=== PATIENT | female | born 1990 | race Caucasian/White ===

== ENCOUNTER → 2020-03-02 09:03 | Outpatient (BNVA) | payer BC, SELFPAY | PROVIDERS: Visit Provider Psychiatry & Neurology Psychiatry | DX: F41.1 Generalized anxiety disorder (principal); F40.10 Social phobia, unspecified; F42.9 Obsessive-compulsive disorder, unspecified; F63.3 Trichotillomania | CPT/HCPCS: 99204 ==

== ENCOUNTER → 2020-05-25 09:06 | Outpatient (BNVA) | payer BC, SELFPAY | PROVIDERS: Visit Provider Psychiatry & Neurology Psychiatry | DX: F63.3 Trichotillomania (principal); F42.9 Obsessive-compulsive disorder, unspecified; F40.10 Social phobia, unspecified; F41.1 Generalized anxiety disorder | CPT/HCPCS: 99213 ==

== ENCOUNTER → 2020-07-27 08:13 | Outpatient (BNVA) | payer BC, SELFPAY | PROVIDERS: Visit Provider Psychiatry & Neurology Psychiatry | DX: F41.1 Generalized anxiety disorder (principal); F63.3 Trichotillomania; F42.9 Obsessive-compulsive disorder, unspecified; F40.10 Social phobia, unspecified | CPT/HCPCS: 99213 ==

== ENCOUNTER → 2020-10-19 09:09 | Outpatient (BNVA) | payer OTHER, SELFPAY | PROVIDERS: Visit Provider Psychiatry & Neurology Psychiatry | DX: F41.1 Generalized anxiety disorder (principal); F63.3 Trichotillomania; F42.9 Obsessive-compulsive disorder, unspecified; F40.10 Social phobia, unspecified | CPT/HCPCS: 99214 ==

== ENCOUNTER → 2020-12-02 07:37 | Outpatient (BNVA) | payer OTHER, SELFPAY | PROVIDERS: Visit Provider Psychiatry & Neurology Psychiatry | DX: F41.1 Generalized anxiety disorder (principal); F63.3 Trichotillomania; F42.9 Obsessive-compulsive disorder, unspecified; F40.10 Social phobia, unspecified | CPT/HCPCS: 99214 ==

== ENCOUNTER → 2021-01-26 13:27 | Outpatient (BNVA) | payer OTHER, SELFPAY | PROVIDERS: Visit Provider Psychiatry & Neurology Psychiatry | DX: F40.10 Social phobia, unspecified (principal); F41.1 Generalized anxiety disorder; F42.9 Obsessive-compulsive disorder, unspecified; F63.3 Trichotillomania | CPT/HCPCS: 99214 ==

== ENCOUNTER 2021-03-01 12:33 | Outpatient (RCR) | payer OTHER, SELFPAY | END 2021-03-24 23:59 | disposition home or self-care (01) | LOC: SPT 12:33 | PROVIDERS: PCP Nurse Practitioner Family; Referring Provider Nurse Practitioner Family; Visit Provider Nurse Practitioner Family | DX: S13.4XXD Sprain of ligaments of cervical spine, subsequent encounter (principal); V89.2XXD Person injured in unspecified motor-vehicle accident, traffic, subsequent encounter; M94.0 Chondrocostal junction syndrome [Tietze]; M53.3 Sacrococcygeal disorders, not elsewhere classified | CPT/HCPCS: 97110; 97162 ==

== ENCOUNTER 2021-03-02 09:59 | Outpatient (CLI) | payer OTHER, SELFPAY ==
--- NOTE | 2021-03-02 10:07 | MM_ITS ---
WS: [id number] BILATERAL DIGITAL DIAGNOSTIC MAMMOGRAM MAMMOGRAPHY WITH CAD CLINICAL INFORMATION: breast lump right side 2 o'clock COMPARISON: None. TECHNIQUE: Bilateral CC, MLO, and ML views. FINDINGS: The breasts are composed of heterogeneous fibroglandular density, which can limit the detection of sm all underlying mass lesions. 8 mm ovoid asymmetry deep to the palpable marker right breast. A few pun ctate calcifications. Left breast is unremarkable. Ultrasound right breast is pending. ULTRASOUND BREAST RIGHT TECHNIQUE: Ultrasound right breast focused area of concern. CLINICAL INFORMATION: breast lump right side 2 o'clock FINDINGS: Ultrasound right breast 3:00 position 1 cm from the nipple. 6.8 x 4.6 x 10 mm cystic lesion with a sm all amount of internal debris. This has a benign appearance. No other suspicious findings. No lesions to target for biopsy. MM/[place] [id number] IMPRESSION: BI-RADS: 2-Benign FOLLOW UP: Age 40 RECOMMEND ANNUAL SCREENING MAMMOGRAPHY AGE 40.
== END 2021-03-02 10:00 | disposition home or self-care (01) ==
PROVIDERS: PCP Nurse Practitioner Family; Visit Provider Nurse Practitioner Family
DX: N63.12 Unspecified lump in the right breast, upper inner quadrant (principal)
CPT/HCPCS: 76642; 77066

== ENCOUNTER 2021-03-25 06:00 | Outpatient (RCR) | payer OTHER, SELFPAY | END 2021-04-24 23:59 | disposition home or self-care (01) | LOC: SPT 06:00 | PROVIDERS: PCP Nurse Practitioner Family; Referring Provider Nurse Practitioner Family; Visit Provider Nurse Practitioner Family | DX: S13.4XXD Sprain of ligaments of cervical spine, subsequent encounter (principal); V89.2XXD Person injured in unspecified motor-vehicle accident, traffic, subsequent encounter; M94.0 Chondrocostal junction syndrome [Tietze]; M53.3 Sacrococcygeal disorders, not elsewhere classified | CPT/HCPCS: 97110 ==

== ENCOUNTER → 2023-05-23 10:15 | Outpatient (BNVA) | payer MEDICAID, SELFPAY | PROVIDERS: PCP Nurse Practitioner Family; Referring Provider Nurse Practitioner Family; Visit Provider Nurse Practitioner Women's Health | DX: Z12.4 Encounter for screening for malignant neoplasm of cervix (principal) | CPT/HCPCS: 87624 ==

== ENCOUNTER → 2023-06-07 10:16 | Outpatient (BNVA) | payer MEDICAID, SELFPAY | PROVIDERS: PCP Nurse Practitioner Family; Visit Provider Nurse Practitioner Women's Health | DX: N92.6 Irregular menstruation, unspecified (principal) | CPT/HCPCS: 76830 ==

== ENCOUNTER → 2023-06-08 09:55 | Outpatient (BNVA) | payer MEDICAID, SELFPAY | PROVIDERS: PCP Nurse Practitioner Family; Visit Provider Student in an Organized Health Care Education/Training Program | DX: M65.351 Trigger finger, right little finger (principal) | CPT/HCPCS: 73130 ==

== ENCOUNTER 2023-06-19 07:19 | Day surgery (SDC) | payer MEDICAID, SELFPAY ==
[2023-06-19] VITALS (7 sets, daily range): BP systolic 92–120; BP diastolic 63–88; PULSE 69–97; RESP 12–18; TEMP 36.1–36.5; O2SAT 97–99; BMI 27.3
[2023-06-19] MEDS: vancomycin 1,000 MG in sodium chloride 0.9% 250 ML 250 MG IV (07:51)
[2023-06-19] MEDS: ketorolac 30 mg/mL INJ IVP (07:52)
[2023-06-19] MEDS: acetaminophen 1,000 MG/100 ML PIGGYBACK 400 MG IV (07:52)
[2023-06-19] MEDS: sodium chloride 0.9% 1,000 ML 30 ML IV (07:52)
--- NOTE | 2023-06-19 07:55 | PC.NURSE ---
Patient refused HCG r/t tubal. Dr Seymour notified.
--- NOTE | 2023-06-19 09:03 | P.ANESASSM_ITS ---
Pre-Anesthetic Assessment Height/Weight: Height 1.55 m Weight 65.771 kg Temp Pulse Resp BP Pulse Ox O2 Del Method 97.3 F L 97 16 120/88 98 Room Air 06/19/23 07:37 06/19/23 07:37 06/19/23 07:37 06/19/23 07:37 06/19/23 07:37 06/19/23 07:37 Preop Diagnosis: Right small finger trigger Operation Date: 06/19/23 09:00 Proposed Procedures p RIGHT SMALL FINGER TRIGGER FINGER RELEASE 52531,M65.351(Right) - Patel Fentress, Familial anesthetic complications: none Was Beta Edmar taken within 24 hours: N/A Was Clonidine taken within 24 hours: N/A Last intake: Intake Last Liquid Date 06/18/23 Last Liquid Time 23:00 Last Solid Date 06/18/23 Last Solid Time 20:00 Social No alcohol and No tobacco Exam alert, oriented x 3, clear to auscultation bilaterally and regular rate & rhythm Airway Submandibular: within normal limits Cervical ROM: within normal limits Mallampati: Class II Dentition: full GI UC Neuropsych Anxiety and Depression Anesthetic Plan ASA status: 2 Anesthesia: MAC Medications/Allergies Home Medications Medication Instructions Recorded Confirmed Last Taken Type adalimumab 40 mg/0.8 mL See Rx Instructions SUBCUT .COMPLEX 02/06/20 06/16/23 06/09/23 History subcutaneous syringe kit (Humira) azathioprine 50 mg tablet 50 mg PO DAILY 02/06/20 06/19/23 06/18/23 History spironolactone 100 mg tablet 100 mg PO DAILY 02/06/20 06/19/23 06/18/23 History bupropion HCl 300 mg 24 hr tablet, 300 mg PO QAM #30 tabs 05/10/23 06/19/23 06/18/23 Rx extended release (Wellbutrin XL) escitalopram oxalate 10 mg tablet 10 mg PO DAILY #30 tabs 05/10/23 06/19/23 06/17/23 Rx (Lexapro) gabapentin 400 mg capsule 400 mg PO QID #120 caps 05/10/23 06/19/23 06/18/23 Rx sertraline 100 mg tablet (Zoloft) 100 mg PO DAILY #30 tabs 05/10/23 06/19/23 06/18/23 Rx ondansetron 4 mg disintegrating 4 mg PO Q8H PRN nausea and 06/19/23 Unknown Rx tablet vomiting 3 days #9 tabs tramadol 50 mg tablet 50 mg PO Q6H PRN pain #20 tabs 06/19/23 Unknown Rx Allergies Allergy/AdvReac Type Severity Reaction Status Date / Time Pertussis Vaccines Allergy Severe Throat Verified 06/08/23 10:06 closing up & trouble breathing oxycodone AdvReac Severe Constant N Verified 06/08/23 10:06 & V cephalexin [From Keflex] AdvReac Intermediate Hives Verified 06/08/23 10:06 ciprofloxacin [From Cipro] AdvReac Intermediate Hives Verified 06/08/23 10:06 haloperidol [From Haldol] AdvReac Intermediate TD Verified 06/08/23 10:06 Penicillins AdvReac Intermediate Hives Verified 06/08/23 10:06 Sulfa (Sulfonamide AdvReac Intermediate Hives Verified 06/08/23 10:06 Antibiotics) Current Medications Generic Name Dose Route Start Last Admin Trade Name Freq PRN Reason Stop Dose Admin Sodium Chloride 1,000 mls @ 30 mls/hr 06/19/23 07:30 06/19/23 07:52 Sodium Chloride 0.9% IV 06/20/23 07:29 30 mls/hr .Q24H SHA Administration PFSH Anesthesia Medical History Psychiatric care Family History Mother Hyperlipidemia Denies family history of Colon cancer Ovarian cancer Diabetes Heart disease Breast cancer Hypertension Uterine cancer Thyroid condition Stroke Social History Smoking and tobacco status: never smoked Second hand smoke exposure: Yes Smoking risk assessment/counseling performed?: No Alcohol intake: former Desire information about alcohol rehabilitation?: No Counseling given: No Substance/Drug Use: never Desire information about substance/drug rehabilitation?: No Counseling given: No Current gender identity: Female Data Anesthesia Cardiac Studies: No Data to Display
--- NOTE | 2023-06-19 09:59 | W.PM.OPSUD ---
Surgery/Procedure H&P Update DATE OF PROCEDURE: June 19, 2023 DATE H&P PERFORMED: 06/08/23 H&P UPDATE INFORMATION: I have reviewed H&P completed within last 30 days, I have examined patient prior to procedure and No changes to prior documentation PREOP DIAGNOSIS: Right small finger trigger PRIMARY INDICATION FOR PROCEDURE: Right small finger trigger, failure conservative treatment PLANNED PROCEDURE: Operation Date: 06/19/23 09:00 Proposed Procedures p RIGHT SMALL FINGER TRIGGER FINGER RELEASE [id number],M65.351(Right) - Patel Treviño DO
[2023-06-19] MEDS: ROPivacaine 0.5% SDV 30 mL 25 MG INJECTION (10:38)
[2023-06-19] MEDS: BUPivacaine 0.5% INJ 10 mL INJECTION (10:38)
--- NOTE | 2023-06-19 11:05 | P.BOP_ITS ---
Date of Procedure: 06/19/2023 Surgeon: Patel Treviño DO [employer] Officer(s): Austin Treviño PA-C Procedure(s) performed: Right small finger trigger release Findings of the procedure(s): Right small finger trigger, procedure went as planned Estimated blood loss: 1 cc Specimen(s) removed: None Post-operative diagnosis: Right small finger trigger
--- NOTE | 2023-06-19 11:06 | P.OP_ITS ---
Operative Report Date of procedure: June 19, 2023 Pre-op diagnosis: Right small finger trigger Post-op diagnosis: Same Surgeon: Patel Treviño DO Transportation Driver: Austin Treviño PA-C: PA was necessary for assistance in this case for right skin retraction as well as protection of neurovascular structures during A1 meseret release as well as to assist in wound closure. Procedure: Post-op diagnosis: Same Procedure done: Right small finger?trigger?release Surgeon: Patel Treviño DO Estimated blood loss: 1cc Tourniquet time 7mins Complications: None Condition: stable Disposition: same day Brief History: Patient's been seen and worked up in the outpatient setting and findings consistent with preoperative diagnosis of right small finger?trigger.? Patient has failed conservative treatment.? Continues to have mechanical locking and catching.? Significant pain as well.? We talked about treatment options nonoperative versus operative intervention.? ?Patient understands the risk benefits complication alternatives of surgical nonsurgical treatment options.? Understanding risks with surgery patient elects proceed with surgical intervention of right small finger trigger release.? Consent obtained in the office.? Here today to proceed with surgical intervention.? All questions answered. Procedure: Patient was seen and evaluated in the preoperative holding area.? Consent was reviewed and signed with patient.? Seen evaluated by Anesthesia Department.? On ce cleared for surgery was brought back to the operative suite.? Placed in supine position on the OR table all bony prominences well-padded patient properly secured to the bed.? Patient's right arm was then placed to the armboard.? A nonsterile tourniquet applied to the right upper arm.? Patient's right upper extremity was then prepped and draped in standard orthopedic fashion.? Final timeout performed.? Patient received appropriate preoperative antibiotics. Esmarch tourniquet was used exsanguinate the right upper extremity tourniquet insufflated to 250 mmHg. Under sterile aseptic technique local digital block was performed to the right small finger.? Once appropriately anesthetized a standard transverse incision was made centering over the A1 meseret following patient's flexor crease of the small finger.? Sharp scalpel incision was made only through skin and then switched to Littler dissection scissors and spread longitudinally directly over the flexor tendon sheath.? I then mobilized both radially and ulnarly and Kasdan retractors were used and placed by my assignment desk assistant to protect neurovascular bundle.? Next I visualized the A1 meseret and this was incised with a scalpel.? I then switched to dissection scissors and released the A1 meseret both proximally as well as distally to its entirety.? Significant tendon sheath fluid was noted consistent with inflammation.? Mild fraying of the flexor tendons noted but no tear.? At this point I utilized a rag nail and pulled the tendons FDS and FDP out of the incision and no?triggering was noted.? I then had anesthesia wake up the patient and patient was able to actively flex and extend with no?triggering.? This point thorough irrigation was performed.? Tourniquet deflated hemostasis satisfactory with bipolar.? I then subsequently closed the incision with interrupted nylon suture.? Xeroform 4 x 4's, Kerlix and an Carroll wrap was applied for a bulky soft dressing.? Patient was then subsequently awakened from anesthesia and taken to PACU in stable condition tolerated procedure without issues. Disposition: Patient taken back in stable condition recovering well.? Patient will receive appropriate discharge instruction as well as pain medication postoperatively.? Patient to follow-up orthopedic office in 2 weeks for repeat evaluation and incision check.? Patient understands that any questions or concerns and contact the office.? All questions answered
--- NOTE | 2023-06-19 11:13 | PM.PACU ---
PACU note Narrative: Patient is a 33-year-old female who just underwent a right fifth digit trigger finger release. Patient transferred to PACU in stable condition. Pain is well controlled. Dressing on hand is dry and in place. Patient's fingers are warm and well-perfused. Patient can wiggle fingers. normal cap refill under 2 seconds. Patient has normal elbow range of motion. Unable to assess sensation due to residual localized anesthetic. Exam: awake Disposition: discharged
--- NOTE | 2023-06-19 15:12 | ANE.PACU2 ---
Inpatient post-anesthesia follow up: Airway intact: Yes Vital signs: Temperature 97.0 F Pulse Rate 69 Respiratory Rate 16 Blood Pressure 114/69 Pulse Oximetry 99 Oxygen Delivery Me thod Room Air Oxygen Flow Rate Fraction of Inspir ed Oxygen Hydration adequate: Yes Nausea and vomiting: No Pain level: 2 Mental status: Baseline
== END 2023-06-19 12:09 | disposition home or self-care (01) ==
PROVIDERS: PCP Nurse Practitioner Family; Visit Provider Student in an Organized Health Care Education/Training Program
PROC: (CPT 26055; principal; 2023-06-19 09:00)
DX: M65.351 Trigger finger, right little finger (principal)
CPT/HCPCS: 26055; J0131; J1885; J2250; J2704; J2795; J3010; J3370; J3490; J7030; J7050

== ENCOUNTER 2023-07-06 10:33 | Outpatient (CLI) | payer MEDICAID, SELFPAY ==
--- NOTE | 2023-07-06 11:00 | MRR_ITS ---
PROCEDURE INFORMATION: Exam: MR Pelvis Without and With Contrast Exam date and time: 07/06/2023 10:54 AM Age: 33 years old Clinical indication: Other: Ovulation bleeding; Patient HX: Irregular periods for 4-5 months; Additional info: N92.3 - ovulation bleeding TECHNIQUE: Imaging protocol: Magnetic resonance imaging of the pelvis without and with contrast. Contrast material: MULTIHANCE; Contrast volume: 14 ml; Contrast route: INTRAVENOUS (IV); COMPARISON: US transvaginal [id number] 06/07/2023 10:25 AM FINDINGS: Intraperitoneal space: No free fluid. Reproductive: The uterus is anteverted. No discrete uterine mass is identified. No abnormal thickening of the endometrial stripe or junctional zone is noted. Within the superior aspect of the cervix there is an ovoid T2 hypointense structure measuring approximately 0.8 x 0.5 x 0.8 cm best demonstrated on series 1501, image 18. In the right adnexal region an ovoid lesion is noted measuring 5.1 x 2.8 cm in the axial plane on series 1501, image 16 by 4.2 cm superior to inferior. The more anteriorly located material within the lesion is T1 hypointense with corresponding marked T2 hyperintensity in the posterior aspect of the lesion demonstrates T1 pre and post fat saturation intermediate to high signal intensity and T2 intermediate to low signal intensity. This lesion demonstrates a thin peripheral wall. Along the medial aspect of this structure there is an additional lesion with a smooth the T1 pre and post fat saturation hyperintense wall on series 1601, image 16 with central fluid signal intensity measuring 1.4 cm in diameter. These lesions do not enhance. Unremarkable left ovary. Bones/joints: Along the course of the S3 nerve root in the presacral space there are ovoid thin walled nonenhancing fluid signal intensity structures consistent with perineural cysts for example on series 1701, image 9 measuring up to 1.6 x 1.2 x 1.3 cm. Soft tissues: Unremarkable. MR/MR pelvis wo/w con [id number] IMPRESSION: 1. A nonenhancing right ovarian lesion measuring 5.1 x 2.8 x 4.2 cm demonstrates MRI and comparison ultrasound features most consistent with an endometrioma. A hemorrhagic cyst is an additional consideration. Gynecological consultation is recommended. 2. A smaller right ovarian nonenhancing lesion measuring 1.4 cm in diameter is compatible with a benign functional corpus luteum cyst. 3. Possible polyp versus submucosal exophytic leiomyoma the cervical canal. 4. Benign-appearing perineural cysts associated with the exiting right S3 nerve root.
[2023-07-06] MEDS: gadobenate dimeglumine 20 mL vial IV (12:03)
== END 2023-07-06 10:34 | disposition home or self-care (01) ==
LOC: RAD 10:33
PROVIDERS: PCP Nurse Practitioner Family; Visit Provider Nurse Practitioner Women's Health
DX: N92.3 Ovulation bleeding (principal); N83.9 Noninflammatory disorder of ovary, fallopian tube and broad ligament, unspecified; G96.191 Perineural cyst
CPT/HCPCS: 72197; A9577

== ENCOUNTER → 2023-07-07 08:50 | Outpatient (BNVA) | payer MEDICAID, SELFPAY | PROVIDERS: PCP Nurse Practitioner Family; Visit Provider Obstetrics & Gynecology | DX: N92.3 Ovulation bleeding (principal) | CPT/HCPCS: 83001; 84146; 84443 ==

== ENCOUNTER 2023-07-09 01:20 | Emergency (ER) | payer MEDICAID, SELFPAY ==
[2023-07-09 01:22] VITALS: BP 140/75; PULSE 115; RESP 20; TEMP 36.6; O2SAT 99; BMI 27.6
--- NOTE | 2023-07-09 01:23 | CTR_ITS ---
PROCEDURE INFORMATION: Exam: CT Cervical Spine Without Contrast Exam date and time: 07/09/2023 1:45 AM Age: 33 years old Clinical indication: Injury or trauma; Blunt trauma; Patient HX: Syncopal episode with fall while in the shower. C/O head and neck pain. C collar in place. TECHNIQUE: Imaging protocol: Computed tomography of the cervical spine without contrast. Radiation optimization: All CT scans at this facility use at least one of these dose optimization techniques: automated exposure control; mA and/or kV adjustment per patient size (includes targeted exams where dose is matched to clinical indication); or iterative reconstruction. REPORTING DATA: Count of CT and Cardiac NM exams in prior 12 months: This patient has received 0 known CTs and 0 known cardiac nuclear medicine studies in the 12 months prior to the current study. COMPARISON: CT head wo con* [id number] 07/09/2023 1:43 AM RADIATION DOSE METRICS: Total DLP (mGy-cm): 503.67 FINDINGS: Bones/joints: No acute fracture. Normal alignment. No significant disc bulge or herniation. No severe spinal canal stenosis. No significant neural foraminal narrowing. Lungs: Lung apices are normal. Soft tissues: Unremarkable. CT/CT cervical spin wo con* [id number] IMPRESSION: No cervical spine fracture or listhesis.
--- NOTE | 2023-07-09 01:23 | CTR_ITS ---
PROCEDURE INFORMATION: Exam: CT Head Without Contrast Exam date and time: 07/09/2023 1:43 AM Age: 33 years old Clinical indication: Injury or trauma; Blunt trauma (contusions or hematomas); Syncope and collapse; Patient HX: Syncopal episode with fall while in the shower. C/O head and neck pain. C collar in place. TECHNIQUE: Imaging protocol: Computed tomography of the head without contrast. Radiation optimization: All CT scans at this facility use at least one of these dose optimization techniques: automated exposure control; mA and/or kV adjustment per patient size (includes targeted exams where dose is matched to clinical indication); or iterative reconstruction. REPORTING DATA: Count of CT and Cardiac NM exams in prior 12 months: This patient has received 0 known CTs and 0 known cardiac nuclear medicine studies in the 12 months prior to the current study. COMPARISON: No relevant prior studies available. RADIATION DOSE METRICS: Total DLP (mGy-cm): 1093.68 FINDINGS: Brain: Normal. No hemorrhage. Unremarkable white matter. No mass effect. Cerebral ventricles: No ventriculomegaly. Paranasal sinuses: Visualized sinuses are unremarkable. No fluid levels. Mastoid air cells: Visualized mastoid air cells are well aerated. Bones/joints: Unremarkable. No acute fracture. Soft tissues: Unremarkable. CT/CT head wo con* [id number] IMPRESSION: No acute intracranial abnormality.
--- NOTE | 2023-07-09 01:23 | XRR_ITS ---
PROCEDURE INFORMATION: Exam: XR Chest Exam date and time: 07/09/2023 1:29 AM Age: 33 years old Clinical indication: Injury or trauma; Blunt trauma (contusions or hematomas); Patient HX: Syncopal episode with fall while in the shower. C/O head and neck pain. C collar in place. TECHNIQUE: Imaging protocol: Radiologic exam of the chest. Views: 1 view. COMPARISON: No relevant prior studies available. FINDINGS: Lungs: Unremarkable. No consolidation. Pleural spaces: Unremarkable. No pleural effusion. No pneumothorax. Heart/Mediastinum: Unremarkable. No cardiomegaly. Bones/joints: Unremarkable. XR/XR chest 1V portable [id number] IMPRESSION: No acute findings.
--- NOTE | 2023-07-09 01:25 | W.ED.GENADLT ---
HPI - General Adult General: Chief complaint: Trauma Stated complaint: Fall x2 in shower Time Seen by Provider: 07/09/23 01:23 Source: patient and EMS Mode of arrival: EMS Limitations: no limitations History of Present Illness: 33-year-old female who states she is taking a shower tonight. She does state that she took a THC gummy before taking a shower and felt extremely tired she states she is unsure if she had just fell asleep while showering or tripped and fell she did fall twice hit her head he may states that she was altered when they arrived but patient is now awake alert answering all my questions appropriately she does has a headache along with some neck pain she is in a c-collar she denies any pain elsewhere. Associated symptoms: Reports headache(s); Deny chest pain, dyspnea, nausea, rash or vomiting Review of Systems Const: Denies: fever(s) or chills ENMT: Denies: throat pain or dental pain Card: Denies: chest pain Resp: Denies: dyspnea GI: Denies: abdominal pain, nausea, vomiting or diarrhea : Denies: dysuria Musc: Denies: neck pain or back pain Skin/Breast: Denies: rash Neuro: Reports: headache(s) PFSH ED PFSH: Medical History Psychiatric care Family History Mother Hyperlipidemia Denies family history of Colon cancer Ovarian cancer Diabetes Heart disease Breast cancer Hypertension Uterine cancer Thyroid disease Stroke Social History Smoking and tobacco/nicotine status: never used tobacco/nicotine Second hand smoke exposure: Yes Alcohol intake: former Substance/Drug Use: never Current gender identity: Female Physical Exam Const: COMMON NORMALS: no acute distress, patient oriented x3 and healthy appearing HENMT: COMMON NORMALS: normocephalic and atraumatic HEAD & SCALP: normocephalic and atraumatic Eye: COMMON NORMALS: Equal, round and reactive pupils present and EOMs intact bilaterally PUPIL: Yes Equal, round and reactive pupils present Neck/C-Spine: COMMON NORMALS: supple OTHER: In c-collar Chest: COMMONS NORMALS: normal inspection of the chest and normal palpation of entire chest wall Resp: COMMON NORMALS: normal respiratory effort, No retractions, No use of accessory muscles and clear to auscultation bilaterally AUSCULTATION: clear to auscultation bilaterally Cardio: COMMON NORMALS: regular rate, regular rhythm and No murmurs present (Cardio) RATE: regular rate RHYTHM: regular rhythm GI: COMMON NORMALS: Normal to inspection, nondistended, normoactive bowel sounds present, Soft to palpation, non-tender and no masses PALPATION: Yes Soft to palpation Extremity: COMMON NORMALS: normal to inspection and full ROM Neuro: COMMON NORMALS: patient oriented x3, moves all extremities and no focal motor deficits Psych: COMMON NORMALS: mental status grossly normal, Normal thought process present and cooperative THOUGHT PROCESS: Normal thought process present Skin: COMMON NORMALS: no rashes or lesions noted and no wounds GENERAL SKIN EXAM: no rashes or lesions noted Course Vital Signs: Vital signs: Vital Signs Temperature 98 F 07/09/23 01:22 Pulse Rate 72 07/09/23 03:00 Respiratory Rate 14 07/09/23 03:00 Blood Pressure 120/75 07/09/23 03:00 Pulse Oximetry 98 07/09/23 03:00 Oxygen Delivery Me thod Room Air 07/09/23 02:03 [facility] - General Adult Medical Decision Making Patient presents here with closed head injury. Her head CT and neck CT are normal she likely passed out in the shower from medication or THC gummy her blood work and EKG here are all normal she is stable for discharge she is at her baseline. Medical Records I reviewed the patient's medical records. Lab Data I reviewed the patient's lab results. 07/09/23 01:34 07/09/23 01:34 Radiology Impressions Cervical Spine CT 07/09/23 01:23 IMPRESSION: No cervical spine fracture or listhesis. Chest X-Ray 07/09/23 01:23 IMPRESSION: No acute findings. Head CT 07/09/23 01:23 IMPRESSION: No acute intracranial abnormality. Laboratory Results WBC 11.43 10^3/uL (3.29-11.43) 07/09/23 01:34 RBC 4.00 10^6/uL (3.85-5.65) 07/09/23 01:34 Hgb 12.40 g/dL (11.27-16.99) 07/09/23 01:34 Hct 36.4 % (36-47) 07/09/23 01:34 MCV 91.0 fl (85-98) 07/09/23 01:34 MCH 31.0 pg (27-33) 07/09/23 01:34 MCHC 34.1 g/dL (30-55) 07/09/23 01:34 RDW 13.2 % (12.1-15.1) 07/09/23 01:34 Plt Count 311 10^3/cmm (157-399) 07/09/23 01:34 MPV 11.3 fL (7.4-10.4) H 07/09/23 01:34 Neut % (Auto) 79.3 % 07/09/23 01:34 Lymph % (Auto) 13.1 % 07/09/23 01:34 Lanier % (Auto) 6.6 % 07/09/23 01:34 Eos % (Auto) 0.3 % 07/09/23 01:34 Baso % (Auto) 0.4 % 07/09/23 01:34 Neut # (Auto) 9.05 10^3/uL (1.8-7.7) H 07/09/23 01:34 Lymph # (Auto) 1.5 10^3/uL (0.8-4.8) 07/09/23 01:34 Lanier # (Auto) 0.8 10^3/uL (0.2-0.9) 07/09/23 01:34 Eos # (Auto) 0.0 10^3/uL (0.0-0.8) 07/09/23 01:34 Baso # (Auto) 0.1 10^3/uL (0.0-0.1) 07/09/23 01:34 Nucleated RBC % (auto) 0 % 07/09/23 01:34 Nucleated RBCs # 0.0 /100WBC 07/09/23 01:34 Sodium 138 mmol/L (136-145) 07/09/23 01:34 Potassium 3.5 mmol/L (3.5-5.1) 07/09/23 01:34 Chloride 104 mmol/L (98-107) 07/09/23 01:34 Carbon Dioxide 24 mmol/L (22-29) 07/09/23 01:34 Anion Gap 13.5 (5-19) 07/09/23 01:34 BUN 10 mg/dL (6-20) 07/09/23 01:34 Creatinine 0.8 mg/dL (0.5-0.9) 07/09/23 01:34 GFR Calculation 82.6 mL/min (90-130) L 07/09/23 01:34 Glucose 100 mg/dL (65-115) 07/09/23 01:34 POC Glucose 93 mg/dL (70-110) 07/09/23 01:32 Calculated Osmolality 285 mOsm/kg (285-295) 07/09/23 01:34 Calcium 9.2 mg/dL (8.5-10.5) 07/09/23 01:34 Total Bilirubin 1.2 mg/dL (0.15-1.2) 07/09/23 01:34 AST 20 U/L (0-32) 07/09/23 01:34 ALT 13 U/L (0-33) 07/09/23 01:34 Alkaline Phosphatase 75 U/L (35-105) 07/09/23 01:34 Total Protein 7.3 g/dL (6.6-8.7) 07/09/23 01:34 Albumin 4.6 g/dL (3.5-5.2) 07/09/23 01:34 Globulin 2.7 g/dL (1.3-4.6) 07/09/23 01:34 HCG, Qual Negative (Negative) 07/09/23 01:34 Ethyl Alcohol < 10 mg/dL (0-10) 07/09/23 01:34 All radiology interpretation(s) finalized by discharge EKG Data EKG 1: I personally reviewed and interpreted this EKG as follows: EKG interpretation date: 07/09/23 EKG interpretation time: 01:31 Interpretation: sinus tch hr [address] or t wave abnormalities qrs 94 qtc 397 Computer generated interpretation: Cervical Spine CT 07/09/23 01:23 IMPRESSION: No cervical spine fracture or listhesis. Chest X-Ray 07/09/23 01:23 IMPRESSION: No acute findings. Head CT 07/09/23 01:23 IMPRESSION: No acute intracranial abnormality. Discharge Plan Discharge Patient Disposition: Home Clinical Impression: CHI (closed head injury) Condition: Stable Prescriptions: No Action azathioprine 50 mg tablet 50 mg PO DAILY spironolactone 100 mg tablet 100 mg PO DAILY Humira 40 mg/0.8 mL syringe kit See Rx Instructions SUBCUT .COMPLEX Rx Instructions: inject one - 40 mg/0.8 mL syringe every 2 weeks SUBCUT gabapentin 400 mg capsule 400 mg PO QID Qty: 120 2RF bupropion HCl [Wellbutrin XL] 300 mg tablet extended release 24 hr 300 mg PO QAM Qty: 30 2RF sertraline [Zoloft] 100 mg tablet 200 mg PO DAILY Qty: 60 2RF Rx Instructions: Take a one and a half tab for two weeks then 2 full tabs. Discharge Orders: Discharge ED (Routine); Ordered 07/09/23 Ordered By: Jonathan Pearce Referrals: Ellie Vera FNP [Primary Care Provider] - 1-3 days Discharge Diet: Advance as tolerated Discharge Activity: Resume usual activity Patient Instructions: Head Injury (ED) Coding Level of Care Code ED Customer Relations Specialist for Allison Gregg
[2023-07-09] MEDS: sodium chloride 0.9% 1,000 ML 999 ML IV (01:27)
--- NOTE | 2023-07-09 01:31 | ECG_ITS ---
[facility] Test Date: 2023-07-09 Pat Name: Pinky Hunt Department: Room: Gender: Female [employer]: : 1990 Requested By: Jonathan Pearce Order Number: [id number] George MD: Angel Medley M.D. Measurements Intervals [address] [place] Rate: 109 P: 65 OK: 152 QRS: 89 QRSD: 94 T: 56 QT: 333 QTc: 450 Interpretive Statements SINUS TACHYCARDIA ABNORMAL RHYTHM ECG No previous ECG available for comparison Electronically Signed On 07-09-2023 19:22:46 CDT by Angel Medley M.D. [id number]
[2023-07-09 01:35] LABS: Glucose Point of Care 93 mg/dL (70-110)
[2023-07-09 01:39] LABS: Basophils # 0.1 10^3/uL (0.0-0.1); Basophils % 0.4 %; Eosinophils % 0.3 %; Hematocrit 36.4 % (36-47); Lymphocytes # 1.5 10^3/uL (0.8-4.8); Lymphocytes % 13.1 %; Mean Corpuscular HGB Conc 34.1 g/dL (30-55); Mean Platelet Volume 11.3 fL (7.4-10.4); Monocytes # 0.8 10^3/uL (0.2-0.9); Monocytes % 6.6 %; Neutrophils # 9.05 10^3/uL (1.8-7.7); Neutrophils % 79.3 %; Nucleated Red Blood Cells % 0 %; Platelet Count 311 10^3/cmm (157-399); Red Cell Distribution Width 13.2 % (12.1-15.1); White Blood Count 11.43 10^3/uL (3.29-11.43)
[2023-07-09 01:47] VITALS: BP 120/75; PULSE 106; RESP 29; O2SAT 97
[2023-07-09 01:52] LABS: HCG, Serum Qual Negative (Negative)
[2023-07-09 01:57] LABS: Alanine Aminotransferase 13 U/L (0-33); Albumin Level 4.6 g/dL (3.5-5.2); Alkaline Phosphatase 75 U/L (35-105); Anion Gap 13.5 (5-19); Aspartate Amino Transferase 20 U/L (0-32); Blood Urea Nitrogen 10 mg/dL (6-20); Calcium 9.2 mg/dL (8.5-10.5); Carbon Dioxide 24 mmol/L (22-29); Chloride 104 mmol/L (98-107); Globulin 2.7 g/dL (1.3-4.6); Glomerular Filtration Rate 82.6 mL/min (90-130); Glucose 100 mg/dL (65-115); Osmolality Calculated 285 mOsm/kg (285-295); Potassium 3.5 mmol/L (3.5-5.1); Sodium 138 mmol/L (136-145); Total Bilirubin 1.2 mg/dL (0.15-1.2); Total Protein 7.3 g/dL (6.6-8.7)
[2023-07-09 01:58] LABS: Alcohol Level < 10 mg/dL (0-10)
[2023-07-09 02:03] VITALS: BP 120/75; PULSE 110; RESP 22; O2SAT 98
[2023-07-09 03:00] VITALS: BP 120/75; PULSE 72; RESP 14; O2SAT 98
== END 2023-07-09 03:01 | disposition home or self-care (01) ==
PROVIDERS: Emergency Provider Emergency Medicine; PCP Nurse Practitioner Family
DX: S09.8XXA Other specified injuries of head, initial encounter (principal); W18.2XXA Fall in (into) shower or empty bathtub, initial encounter
CPT/HCPCS: 36415; 36416; 70450; 71045; 72125; 80053; 80307; 82962; 84703; 85025; 93005; 96360; 99285; J7030

== ENCOUNTER → 2023-08-08 10:47 | Outpatient (BNVA) | payer OTHER, SELFPAY | PROVIDERS: PCP Nurse Practitioner Family; Visit Provider Obstetrics & Gynecology | DX: N84.1 Polyp of cervix uteri (principal); Q51.3 Bicornate uterus | CPT/HCPCS: 76830 ==

== ENCOUNTER 2023-08-29 09:57 | Day surgery (SDC) | payer MEDICAID, SELFPAY ==
--- NOTE | 2023-08-25 09:31 | ANES.PREANE2 ---
Pre-Anesthetic Assessment Height/Weight: Height 1.55 m Operation Date: 08/29/23 11:45 Proposed Procedures p Hysteroscopy, polypectomy with Myosure 31945,N84.0(Not Applicable) - Baudilio Hopkins MD s Poylpectomy(Not Applicable) - Baudilio Hopkins MD Familial anesthetic complications: post op shivering Social No alcohol and No tobacco Exam alert, oriented x 3, clear to auscultation bilaterally and regular rate & rhythm Airway Mallampati: Class I Dentition: full GI ulcerative colitis, steroids within the last year probably Anesthetic Plan ASA status: 2 Anesthesia: General Risk of > 500 ml blood loss (7ml/kg in children): No Medications/Allergies Home Medications Medication Instructions Recorded Confirmed Last Taken Type adalimumab 40 mg/0.8 mL See Rx Instructions SUBCUT .COMPLEX 02/06/20 08/25/23 08/25/23 History subcutaneous syringe kit (Humira) azathioprine 50 mg tablet 50 mg PO DAILY 02/06/20 08/25/23 08/25/23 History spironolactone 100 mg tablet 100 mg PO DAILY 02/06/20 08/25/23 08/25/23 History bupropion HCl 300 mg 24 hr tablet, 300 mg PO QAM #90 tabs 08/01/23 08/25/23 08/25/23 Rx extended release (Wellbutrin XL) gabapentin 400 mg capsule 400 mg PO TID #270 caps 08/01/23 08/25/23 08/25/23 Rx sertraline 100 mg tablet (Zoloft) 200 mg (2 x 100 mg) PO DAILY #180 08/01/23 08/25/23 08/25/23 Rx tabs Allergies Allergy/AdvReac Type Severity Reaction Status Date / Time Pertussis Vaccines Allergy Severe Throat Verified 08/25/23 09:09 closing up & trouble breathing oxycodone AdvReac Severe Constant N Verified 08/25/23 09:09 & V cephalexin [From Keflex] AdvReac Intermediate Hives Verified 08/25/23 09:09 ciprofloxacin [From Cipro] AdvReac Intermediate Hives Verified 08/25/23 09:09 haloperidol [From Haldol] AdvReac Intermediate TD Verified 08/25/23 09:09 Penicillins AdvReac Intermediate Hives Verified 08/25/23 09:09 Sulfa (Sulfonamide AdvReac Intermediate Hives Verified 08/25/23 09:09 Antibiotics) [facility] Anesthesia Medical History Psychiatric care Family History Mother Hyperlipidemia Denies family history of Colon cancer Ovarian cancer Diabetes Heart disease Breast cancer Hypertension Uterine cancer Thyroid disease Stroke Social History Smoking and tobacco/nicotine status: never used tobacco/nicotine Second hand smoke exposure: Yes Alcohol intake: former Substance/Drug Use: never Current gender identity: Female Data Anesthesia Cardiac Studies: No Data to Display
[2023-08-25 09:48] LABS: Basophils % 0.5 %; Eosinophils # 0.1 10^3/uL (0.0-0.8); Eosinophils % 1.2 %; Hematocrit 39.1 % (36-47); Lymphocytes # 2.6 10^3/uL (0.8-4.8); Lymphocytes % 30.9 %; Mean Corpuscular HGB Conc 32.7 g/dL (30-55); Mean Corpuscular Hemoglobin 30.3 pg (27-33); Mean Corpuscular Volume 92.7 fl (85-98); Mean Platelet Volume 10.9 fL (7.4-10.4); Monocytes # 0.7 10^3/uL (0.2-0.9); Monocytes % 8.1 %; Neutrophils # 5.03 10^3/uL (1.8-7.7); Neutrophils % 58.9 %; Nucleated Red Blood Cells % 0 %; Platelet Count 326 10^3/cmm (157-399); Red Blood Count 4.22 10^6/uL (3.85-5.65); Red Cell Distribution Width 13.1 % (12.1-15.1); White Blood Count 8.52 10^3/uL (3.29-11.43)
[2023-08-25 09:57] LABS: Add Urine Culture? No; Add Urine Microscopic? YES; Bacteria Urine 1+ /hpf; Bilirubin Urine 1+ (Negative); Blood Urine Neg (Negative); Glucose Urine UA Norm (Normal); Ketones Urine 1+ (Negative); Leukocyte Esterase Urine Negative (Negative); Mucus Urine 3+ /hpf; Nitrate Urine Negative (Negative); Protein Urine Trace (Negative); RBC Urine 0-4 /hpf (0-2); Squamous Epithelial Cell Urine 15-25 /hpf (0-5); Urine Appearance Clear (CLEAR); Urine Color Yellow (Yellow); Urobilinogen Urine Norm (Negative); WBC Urine 0-4 /hpf (0-5); pH Urine 6.5 (5-7)
[2023-08-25 10:02] LABS: Alanine Aminotransferase 16 U/L (0-33); Albumin Level 4.2 g/dL (3.5-5.2); Alkaline Phosphatase 78 U/L (35-105); Aspartate Amino Transferase 26 U/L (0-32); Blood Urea Nitrogen 8 mg/dL (6-20); Calcium 9.3 mg/dL (8.5-10.5); Carbon Dioxide 27 mmol/L (22-29); Chloride 102 mmol/L (98-107); Globulin 2.8 g/dL (1.3-4.6); Glomerular Filtration Rate 115.1 mL/min (90-130); Glucose 92 mg/dL (65-115); Osmolality Calculated 284 mOsm/kg (285-295); Sodium 138 mmol/L (136-145)
[2023-08-25 10:02] LABS: OR HCG Qualitative Urine Negative (Negative)
[2023-08-29] VITALS (15 sets, daily range): BP systolic 90–130; BP diastolic 48–90; PULSE 78–127; RESP 12–28; TEMP 36.1–36.5; O2SAT 92–100; BMI 26.2
[2023-08-29] MEDS: scopolamine 1.5 Patch 1 PATCH TRANSDERMA (10:47)
[2023-08-29] MEDS: sodium chloride 0.9% 1,000 ML 30 ML IV (10:48)
--- NOTE | 2023-08-29 11:25 | P.ANESUD_ITS ---
Pre-Anesthetic Update Pre-Anesthetic Assessment: Date of Surgery/Procedure: 08/29/23 Preop Simi gnosis: Endometrial polyp Proposed Procedure: Operation Date: 08/29/23 11:45 Proposed Procedures p Hysteroscopy, polypectomy with Myosure 58224,N84.0(Not Applicable) - Baudilio Hopkins MD s Poylpectomy(Not Applicable) - Baudilio Hopkins MD Any changes to Pre-Anesthetic Assessment?: No Last Intake: Intake Last Liquid Date 08/28/23 Last Liquid Time 23:45 Last Solid Date 08/28/23 Last Solid Time 20:00 Labs Last 48hrs: Blood Bank 08/29/23 10:30 Blood Type B Positive Rho(D) Type Rh positive Vitals: Temperature 97.7 F 08/29/23 10:29 Temperature Source Temporal Artery S can 08/29/23 10:29 Pulse Rate 80 08/29/23 10:29 Respiratory Rate 18 08/29/23 10:29 Blood Pressure 108/76 08/29/23 10:29 Blood Pressure Nita n 86 08/29/23 10:29 Pulse Oximetry 98 08/29/23 10:29 Oxygen Delivery Me thod Room Air 08/29/23 10:29 Exam: Pre-Anes Outpt Exam: alert, oriented x 3, clear to auscultation bilaterally and regular rate & rhythm Cardiac Studies: No Data to Display
--- NOTE | 2023-08-29 13:08 | W.PM.OPSUD ---
Surgery/Procedure H&P Update DATE OF PROCEDURE: August 29, 2023 DATE H&P PERFORMED: 08/21/23 H&P UPDATE INFORMATION: I have reviewed H&P completed within last 30 days, I have examined patient prior to procedure and No changes to prior documentation PREOP DIAGNOSIS: Endometrial polyp PLANNED PROCEDURE: Operation Date: 08/29/23 11:45 Proposed Procedures p Hysteroscopy, polypectomy with Myosure 32365,N84.0(Not Applicable) - Baudilio Hopkins MD s Poylpectomy(Not Applicable) - Baudilio Hopkins MD
[2023-08-29] MEDS: ceFAZolin 2,000 MG in sodium chloride 0.9% (plus) 50 ML 100 MG IV (13:29)
[2023-08-29] MEDS: lidocaine-epi 2% 20 mL INJ INJECTION (14:15)
--- NOTE | 2023-08-29 14:31 | P.OP_ITS ---
Operative Report Date of procedure: August 29, 2023 Pre-op diagnosis: Endometrial polyp Post-op diagnosis: Irregular cavity Post-op findings: Irregular cavity Procedure done: Hysteroscopy with dilation and curettage via MyoSure Specimens removed/disposition: Endometrial curettings Surgeon: Baudilio Hopkins MD Estimated blood loss (mL): 5 IV fluids: 500 Findings: Complete assessments of uterine cavity could not be performed due to irregular size cavity and endometrium irregular shaped. Ostiums could not be visualized Procedure: After informed consent, the risks included but were not limited to bleeding, infection, injury to internal organs. The patient was counseled on a possible laparotomy and on the potential need for hysterectomy. The patient expressed understanding of the risks involved, all questions were answered, and the patient consented to the procedure. The patient was taken to the operating room where general anesthesia was administered. She was placed in the dorsal lithotomy position and prepped and draped in sterile fashion. A time out pr ocedure was performed. The patient was examined under anesthesia and found to have a normal uterus with normal adnexa. A sterile weight speculum was placed in the vagina. The uterus was then gently sounded to 4 cm, and the cervix was dilated. The 0 degrees MyoSure hysteroscope was advanced gently to the uterine fundus while visualizing the monitor. Survey of the uterine cavity showed: Irregular cavity, polyp on the anterior wall, the fundus shows irregular proliferative endometrium; left ostium was not visualized, and lateral wall with proliferative endometrium; right ostium not visualized, and lateral wall with irregular; anterior and posterior kessler are with irregular endometrium; endocervical canal is normal. The MyoSure device was advanced and the direct visualization the anterior wall polyp and endometrium were morcellated without complication. At the end of morcellation the fluid deficit was 620 mL and was estimated at approximately 500 mL were on the floor. There was minimal bleeding noted and the tenaculum removed with goad hemostasis noted. The patient tolerated the procedure well. The patient was taken to the recovery area in stable condition.
--- NOTE | 2023-08-29 14:57 | ANE.PACU2 ---
Inpatient post-anesthesia follow up: Airway intact: Yes Vital signs: Temperature 97.0 F Pulse Rate 78 Respiratory Rate 20 Blood Pressure 92/55 Pulse Oximetry 99 Oxygen Delivery Me thod Simple Mask Oxygen Flow Rate 6 Fraction of Inspir ed Oxygen Hydration adequate: Yes Nausea and vomiting: No Pain level: 2 Mental status: Baseline
[2023-08-29] MEDS: meperidine 50 mg/mL INJ 12.5 MG IVP (15:03)
== END 2023-08-29 16:00 | disposition home or self-care (01) ==
PROVIDERS: PCP Nurse Practitioner Family; Visit Provider Obstetrics & Gynecology
PROC: 0UDB8ZZ Extraction of Endometrium, Via Natural or Artificial Opening Endoscopic (ICD-10-PCS; CPT 58558; principal; 2023-08-29 11:35)
PROC: (CPT 58558; 2023-08-29 11:35)
DX: N84.0 Polyp of corpus uteri (principal)
CPT/HCPCS: 58558; 36415; 80053; 81001; 81025; 84703; 85025; 86850; 86900; 88305; J0690; J1100; J1200; J1885; J2175; J2250; J2405; J2704; J3010; J7030

== ENCOUNTER 2024-02-06 09:00 | Observation (INO) | payer MEDICAID, SELFPAY ==
[2024-01-29 10:39] LABS: Basophils # 0.1 10^3/uL (0.0-0.1); Basophils % 0.6 %; Eosinophils # 0.3 10^3/uL (0.0-0.8); Lymphocytes # 3.2 10^3/uL (0.8-4.8); Lymphocytes % 36.2 %; Mean Corpuscular HGB Conc 33.3 g/dL (30-55); Mean Corpuscular Volume 92.9 fl (85-98); Mean Platelet Volume 10.6 fL (7.4-10.4); Monocytes # 0.7 10^3/uL (0.2-0.9); Neutrophils # 4.55 10^3/uL (1.8-7.7); Nucleated Red Blood Cells % 0 %; Platelet Count 335 10^3/cmm (157-399); Red Blood Count 4.52 10^6/uL (3.85-5.65); Red Cell Distribution Width 13.3 % (12.1-15.1); White Blood Count 8.74 10^3/uL (3.29-11.43)
--- NOTE | 2024-01-29 10:47 | ANES.PREANE2 ---
Pre-Anesthetic Assessment Height/Weight: Height 1.55 m Operation Date: 02/06/24 07:00 Proposed Procedures p Total Vaginal Hysterectomy 07310 N93.9(Not Applicable) - Baudilio Hopkins MD Familial anesthetic complications: none Social No alcohol and No tobacco Exam alert, oriented x 3, clear to auscultation bilaterally and regular rate & rhythm Airway Mallampati: Class I Dentition: full GI ulcerative colitis - prednisone use within last year Anesthetic Plan ASA status: 3 Anesthesia: General Risk of > 500 ml blood loss (7ml/kg in children): No Medications/Allergies Home Medications Medication Instructions Recorded Confirmed Last Taken Type adalimumab 40 mg/0.8 mL 40 mg SUBCUT .Q2WKS 02/06/20 01/29/24 01/26/24 History subcutaneous syringe kit (Humira) azathioprine 50 mg tablet 50 mg PO DAILY 02/06/20 01/29/24 01/29/24 History spironolactone 100 mg tablet 100 mg PO DAILY 02/06/20 01/29/24 01/29/24 History bupropion HCl 300 mg 24 hr tablet, 300 mg PO QAM #30 tabs 12/12/23 01/29/24 01/29/24 Rx extended release (Wellbutrin XL) gabapentin 400 mg capsule 400 mg PO TID #90 caps 12/12/23 01/29/24 01/29/24 Rx sertraline 100 mg tablet (Zoloft) 200 mg (2 x 100 mg) PO DAILY #60 12/12/23 01/29/24 01/29/24 Rx tabs Allergies Allergy/AdvReac Type Severity Reaction Status Date / Time Pertussis Vaccines Allergy Severe Throat Verified 01/29/24 09:01 closing up & trouble breathing oxycodone AdvReac Severe Constant N Verified 01/29/24 09:01 & V cephalexin [From Keflex] AdvReac Intermediate Hives Verified 01/29/24 09:01 ciprofloxacin [From Cipro] AdvReac Intermediate Hives Verified 01/29/24 09:01 haloperidol [From Haldol] AdvReac Intermediate TD Verified 01/29/24 09:01 Penicillins AdvReac Intermediate Hives Verified 01/29/24 09:01 Sulfa (Sulfonamide AdvReac Intermediate Hives Verified 01/29/24 09:01 Antibiotics) [facility] Anesthesia Medical History Ulcerative colitis No pertinent past medical history neghx: htn, dm, thyroid, dvt/pe PCP: Dr. Ellie Vera Psychiatric care Surgical History H/O bilateral salpingectomy History of hysteroscopy (~08/30/23) Hysteroscopy D&C via Myosure, performed by Sandeep at [facility]-- pathology benign endocervical polyp Family History Mother Hyperlipidemia Denies family history of Colon cancer Ovarian cancer Diabetes Heart disease Breast cancer Hypertension Uterine cancer Thyroid disease Stroke Female Reproductive History Date of last menstrual period: 01/24/24 Data Anesthesia 01/29/24 10:25 01/29/24 10:25 Short CBC 01/29/24 Range/Units 10:25 WBC 8.74 (3.29-11.43) 10^3/uL Hgb 14.00 (11.27-16.99) g/dL Hct 42.0 (36-47) % MCV 92.9 (85-98) fl Plt Count 335 (157-399) 10^3/cmm Neut % (Auto) 52.0 % Neut # (Auto) 4.55 (1.8-7.7) 10^3/uL Cardiac Studies: No Data to Display
[2024-01-29 10:51] LABS: Bilirubin Urine Neg (Negative); Blood Urine Trace (Negative); Glucose Urine UA Norm (Normal); Ketones Urine Negative (Negative); Leukocyte Esterase Urine Negative (Negative); Nitrate Urine Negative (Negative); Protein Urine Neg (Negative); Urine Appearance Clear (CLEAR); Urine Color Yellow (Yellow); Urobilinogen Urine Norm (Negative); pH Urine 6 (5-7)
[2024-01-29 10:52] LABS: Add Urine Culture? No; Add Urine Microscopic? YES; Bacteria Urine TRACE /hpf; Mucus Urine TRACE /hpf; Squamous Epithelial Cell Urine 0-4 /hpf (0-5); WBC Urine 0-4 /hpf (0-5)
[2024-01-29 11:03] LABS: Alanine Aminotransferase 21 U/L (0-33); Albumin Level 4.2 g/dL (3.5-5.2); Alkaline Phosphatase 80 U/L (35-105); Anion Gap 12.9 (5-19); Aspartate Amino Transferase 22 U/L (0-32); Blood Urea Nitrogen 9 mg/dL (6-20); Calcium 9.6 mg/dL (8.5-10.5); Carbon Dioxide 28 mmol/L (22-29); Chloride 101 mmol/L (98-107); Globulin 3.1 g/dL (1.3-4.6); Glomerular Filtration Rate 96.4 mL/min (90-130); Glucose 61 mg/dL (65-115); Osmolality Calculated 283 mOsm/kg (285-295); Potassium 3.9 mmol/L (3.5-5.1); Sodium 138 mmol/L (136-145); Total Bilirubin 0.4 mg/dL (0.15-1.2); Total Protein 7.3 g/dL (6.6-8.7)
[2024-02-06] VITALS (17 sets, daily range): BP systolic 86–127; BP diastolic 53–83; PULSE 67–127; RESP 14–18; TEMP 36.2–37.1; O2SAT 89–99; BMI 26.4
[2024-02-06 06:12] LABS: OR HCG Qualitative Urine Negative (Negative)
[2024-02-06] MEDS: scopolamine 1.5 Patch 1 PATCH TRANSDERMA (06:22)
[2024-02-06] MEDS: sodium chloride 0.9% 500 ML IV (06:30)
--- NOTE | 2024-02-06 06:37 | P.ANESUD_ITS ---
Pre-Anesthetic Update Pre-Anesthetic Assessment: Date of Surgery/Procedure: 02/06/24 Preop Simi gnosis: Abnormal uterine bleeding, pelvic pain, dyspareunia, bicornuate uterus Proposed Procedure: Operation Date: 02/06/24 07:00 Proposed Procedures p Total Vaginal Hysterectomy 48095 N93.9(Not Applicable) - Baudilio Hopkins MD Last Intake: Intake Last Liquid Date 02/05/24 Last Liquid Time 22:00 Last Solid Date 02/05/24 Last Solid Time 20:30 Vitals: Temperature 97.2 F L 02/06/24 06:06 Temperature Source Temporal Artery S can 02/06/24 06:06 Pulse Rate 84 02/06/24 06:06 Respiratory Rate 17 02/06/24 06:06 Blood Pressure 119/65 02/06/24 06:06 Blood Pressure Nita n 83 02/06/24 06:06 Pulse Oximetry 96 02/06/24 06:06 Oxygen Delivery Me thod Room Air 02/06/24 06:06 Exam: Pre-Anes Outpt Exam: alert, oriented x 3, clear to auscultation bilaterally and regular rate & rhythm Cardiac Studies: No Data to Display
[2024-02-06] MEDS: sodium chloride 0.9% 1,000 ML 30 ML IV (06:48)
--- NOTE | 2024-02-06 06:51 | W.PM.OPSUD ---
Surgery/Procedure H&P Update DATE OF PROCEDURE: February 06, 2024 DATE H&P PERFORMED: 01/29/24 H&P UPDATE INFORMATION: I have reviewed H&P completed within last 30 days, I have examined patient prior to procedure and No changes to prior documentation PREOP DIAGNOSIS: Abnormal uterine bleeding, pelvic pain, dyspareunia, bicornuate uterus PLANNED PROCEDURE: Operation Date: 02/06/24 07:00 Proposed Procedures p Total Vaginal Hysterectomy 01525 N93.9(Not Applicable) - aBudilio Hopkins MD
[2024-02-06] MEDS: vancomycin 1,000 MG in sodium chloride 0.9% 250 ML 250 MG IV (07:15)
[2024-02-06] MEDS: lidocaine-epi 2% PF 1:200,000 20 mL SDV XX (07:37)
--- NOTE | 2024-02-06 08:38 | PM.OP ---
Operative Report Date of procedure: February 06, 2024 Pre-op diagnosis: Chronic pelvic pain Dyspareunia Bicornuate uterus Post-op diagnosis: Chronic pelvic pain Dyspareunia Post-op findings: Normal uterus Procedure done: Total vaginal hysterectomy Specimens removed/disposition: Uterus Surgeon: Baudilio Hopkins MD Estimated blood loss (mL): 60 IV fluids (mL): 600 Urine output (mL): 50 Complications: None Findings: Normal size uterus Procedure: After informed consent and risks, benefits, indications and alternatives reviewed with the patient was taken to the operating room. The patient was placed in dorsal lithotomy position prepped, and draped in the usual sterile fashion. The pre-procedure timeout verifying the correct patient, procedure, site and side, could not requirements was performed and acknowledge by the OR team. A Pabon catheter was placed. A Bookwalter vaginal retractor was placed into the vagina in usual manner to visualize the cervix. Cervix was grasped with a single tooth tenaculum and circumferentially infiltrated with 2% lidocaine with epinephrine. Then cervix was circumferentially incised with bovie and the bladder was dissected off the pubovesical cervical fascia anteriorly with a sponge stick and Metzenbaum scissors. The anterior peritoneal reflection was identified and the anterior cul-de-sac was entered sharply with Metzenbaum scissors. The same procedure was performed posteriorly and a posterior colpotomy was made through the posterior cul-de-sac space without difficulty and the posterior blade of the Bookwalter vaginal retractor was advanced posteriorly into the cul-de-sac. At this time, the left and right uterosacral ligaments were isolated and ligated with 0 Vicryl. The LigaSure device was placed over the uterosacral ligaments on either side and was then used in a serial fashion up through the cardinal ligaments bilaterally cross-clamped, cut, and sealed with the LigaSure device. Finally, the uterine arteries were cross-clamped, cut, sealed and ligated with the LigaSure device. Hemostasis was assured. The broad ligaments were then serially clamped, sealed and cut with the LigaSure device on both sides. Excellent hemostasis was visualized. Both cornua were clamped, sealed and cut with the LigaSure device. Then the pedicles were then suture ligated with excellent hemostasis. The uterus was excised and submitted for pathologic evaluation. No other abnormalities were noted in the pelvic cavity. The peritoneum was then closed in a pursestring fashion with 0 Vicryl suture. Bludigo was given IV. The vaginal cuff angles were closed with [id number] #0 Vicryl suture on both sides and transfixed with the ipsilateral cardinal and uterosacral ligaments. The remainder of the vaginal cuff was closed with #0 Vicryl in a running locked fashion. At this time, instruments were removed from the vagina at hemostasis assured. Small vaginal laceration caused by retractor was repaired with2-0 Vicryl. Pabon catheter was noted yielding clear blue urine. A vaginal packing was placed and the patient was taken out of dorsal lithotomy position and awakened from the general anesthesia. The patient tolerated the procedure well and was taken to the PACU recovery room in a stable condition. Sponge, lap, needle and instruments counts were correct x3.
[2024-02-06] MEDS: meperidine 50 mg/mL INJ 12.5 MG IVP (08:58)
[2024-02-06] MEDS: HYDROcodone-acetaminophen 5-325 mg Tablet PO ×2 (09:52→21:30)
[2024-02-06] MEDS: dextrose 5%-lactated ringers 1,000 ML 125 ML IV ×2 (09:53→18:09)
--- NOTE | 2024-02-06 13:43 | ANE.PACU2 ---
Inpatient post-anesthesia follow up: Vital signs: Temperature 98.2 F Pulse Rate 88 Respiratory Rate 17 Blood Pressure 94/62 Pulse Oximetry 93 Oxygen Delivery Me thod Room Air Oxygen Flow Rate 1 Fraction of Inspir ed Oxygen Hydration adequate: Yes Nausea and vomiting: No Pain level: controlled Mental status: Baseline Additional Comments: no apparent anesthetic complications noted
[2024-02-06] MEDS: ketorolac 30 mg/mL INJ IVP ×2 (15:21→21:30)
[2024-02-06] MEDS: docusate sodium 100 mg Capsule PO (18:09)
[2024-02-07] MEDS: ketorolac 30 mg/mL INJ IVP (03:26)
[2024-02-07 05:31] LABS: Hematocrit 32.2 % (36-47); Mean Corpuscular HGB Conc 33.5 g/dL (30-55); Mean Corpuscular Hemoglobin 31.4 pg (27-33); Mean Corpuscular Volume 93.6 fl (85-98); Mean Platelet Volume 10.9 fL (7.4-10.4); Platelet Count 239 10^3/cmm (157-399); Red Blood Count 3.44 10^6/uL (3.85-5.65); Red Cell Distribution Width 13.6 % (12.1-15.1); White Blood Count 12.13 10^3/uL (3.29-11.43)
[2024-02-07 05:41] VITALS: BP 101/64; PULSE 61; RESP 16; O2SAT 97
--- NOTE | 2024-02-07 05:46 | PC.NURSE ---
Pabon and vag packing removed at 0520. Pt tolerated well.
[2024-02-07] MEDS: ibuprofen 800 mg tablet PO (09:21)
[2024-02-07] MEDS: docusate sodium 100 mg Capsule PO (09:21)
[2024-02-07 09:30] VITALS: BP 92/58; PULSE 69; RESP 16; TEMP 36.3; O2SAT 98
--- NOTE | 2024-02-07 11:22 | P.DS_ITS ---
Discharge Providers [employer] Date of Admission: 02/06/24 09:00 Date of Discharge: 02/07/24 Attending Provider at Admission: Baudilio Hopkins MD Attending Provider at Discharge: Baudilio Hopkins MD Primary Care Provider: Ellie Vera Reason for Visit Reason for Visit: N93.9 Hospital Course Hospital Course Ms. Hunt 33 y/o with a history of abnormal bleeding, pelvic pain and dyspareunia. Admitted for total vaginal hysterectomy. The procedure was performed without complication. Overnight observation was uneventful. She is afebrile and hemodynamically stable postoperative day 1. Tolerating diet well. Ambulating well. Patient was counseled regarding pelvic rest for 6 weeks (no sex, no tampons, no vaginal douches). Return to the emergency room if any fever, increased bleeding or pain. Physical Exam Narrative: GA: Alert and oriented ?3. HEENT: WNL. Heart: Regular rate and rhythm. Lungs: Clear to auscultation bilaterally. Abdomen: Bowel sounds present, minimal tenderness. ENGINEERING GEOLOGIST: Spotting bleeding. Extremities: No edema, no cyanosis, no calves pain. Urinary Catheter Management: [place]: Cath Placed During This Visit: yes, but has since been removed by the nurse Reason for Continuing Indwelling Catheter: Decision to DC Catheter Urinary Catheter Date of Insertion: 02/06/24 Urinary Catheter Time of Insertion: 07:30 Date Urinary Catheter Removed: 02/07/24 Time Urinary Catheter Discontinued: 05:15 History History History 0 Term Miscarriages/Ectopic Living Children Discharge Data Studies Completed and Pending Pending at discharge Category Date Time Status Pathology: Surgical [PTH] Routine Pth 02/06/24 08:13 Received Laboratory Results WBC 12.13 10^3/uL (3.29-11.43) H 02/07/24 05:20 RBC 3.44 10^6/uL (3.85-5.65) L 02/07/24 05:20 Hgb 10.80 g/dL (11.27-16.99) L 02/07/24 05:20 Hct 32.2 % (36-47) L 02/07/24 05:20 MCV 93.6 fl (85-98) 02/07/24 05:20 MCH 31.4 pg (27-33) 02/07/24 05:20 MCHC 33.5 g/dL (30-55) 02/07/24 05:20 RDW 13.6 % (12.1-15.1) 02/07/24 05:20 Plt Count 239 10^3/cmm (157-399) 02/07/24 05:20 MPV 10.9 fL (7.4-10.4) H 02/07/24 05:20 Neut % (Auto) 52.0 % 01/29/24 10:25 Lymph % (Auto) 36.2 % 01/29/24 10:25 [place] % (Auto) 8.0 % 01/29/24 10:25 Eos % (Auto) 3.0 % 01/29/24 10:25 Baso % (Auto) 0.6 % 01/29/24 10:25 Neut # (Auto) 4.55 10^3/uL (1.8-7.7) 01/29/24 10:25 Lymph # (Auto) 3.2 10^3/uL (0.8-4.8) 01/29/24 10:25 [place] # (Auto) 0.7 10^3/uL (0.2-0.9) 01/29/24 10:25 Eos # (Auto) 0.3 10^3/uL (0.0-0.8) 01/29/24 10:25 Baso # (Auto) 0.1 10^3/uL (0.0-0.1) 01/29/24 10:25 Nucleated RBC % (auto) 0 % 01/29/24 10:25 Nucleated RBCs # 0.0 /100WBC 01/29/24 10:25 Sodium 138 mmol/L (136-145) 01/29/24 10:25 Potassium 3.9 mmol/L (3.5-5.1) 01/29/24 10:25 Chloride 101 mmol/L (98-107) 01/29/24 10:25 Carbon Dioxide 28 mmol/L (22-29) 01/29/24 10:25 Anion Gap 12.9 (5-19) 01/29/24 10:25 BUN 9 mg/dL (6-20) 01/29/24 10:25 Creatinine 0.7 mg/dL (0.5-0.9) 01/29/24 10:25 GFR Calculation 96.4 mL/min (90-130) 01/29/24 10:25 Glucose 61 mg/dL (65-115) L 01/29/24 10:25 Calculated Osmolality 283 mOsm/kg (285-295) L 01/29/24 10:25 Calcium 9.6 mg/dL (8.5-10.5) 01/29/24 10:25 Total Bilirubin 0.4 mg/dL (0.15-1.2) 01/29/24 10:25 AST 22 U/L (0-32) 01/29/24 10:25 ALT 21 U/L (0-33) 01/29/24 10:25 Alkaline Phosphatase 80 U/L (35-105) 01/29/24 10:25 Total Protein 7.3 g/dL (6.6-8.7) 01/29/24 10:25 Albumin 4.2 g/dL (3.5-5.2) 01/29/24 10:25 Globulin 3.1 g/dL (1.3-4.6) 01/29/24 10:25 Urine Color Yellow (Yellow) 01/29/24 10:20 Urine Appearance Clear (CLEAR) 01/29/24 10:20 Urine pH 6 (5-7) 01/29/24 10:20 Ur Specific [place] 1.020 (1.005-1.030) 01/29/24 10:20 Urine Protein Neg (Negative) 01/29/24 10:20 Urine Glucose (UA) Norm (Normal) 01/29/24 10:20 Urine Ketones Negative (Negative) 01/29/24 10:20 Urine Blood Trace (Negative) H 01/29/24 10:20 Urine Nitrate Negative (Negative) 01/29/24 10:20 Urine Bilirubin Neg (Negative) 01/29/24 10:20 Urine Urobilinogen Norm mg/dL (Negative) 01/29/24 10:20 Ur Leukocyte Esterase Negative (Negative) 01/29/24 10:20 Urine RBC 5-10 /hpf (0-2) H 01/29/24 10:20 Urine WBC 0-4 /hpf (0-5) H 01/29/24 10:20 Ur Squamous Epith Cells 0-4 /hpf (0-5) H 01/29/24 10:20 Amorphous Sediment Not Reportable 01/29/24 10:20 Urine Bacteria Trace /hpf (NONE) 01/29/24 10:20 Urine Mucus Trace /hpf 01/29/24 10:20 Urine HCG, Qual Negative (Negative) 02/06/24 06:11 Blood Type B Positive 02/06/24 06:24 Rho(D) Type Rh positive 02/06/24 06:24 Antibody Screen Negative 02/06/24 06:24 Vitals Last Vital Signs Temp 97.4 F L 02/07/24 09:30 Pulse 69 02/07/24 09:30 Resp 16 02/07/24 09:30 BP 92/58 02/07/24 09:30 Pulse Ox 98 02/07/24 09:30 O2 Del Method Room Air 02/07/24 09:30 O2 Flow Rate 1 02/06/24 09:45 Results Labs OB ([facility]): Blood Type B Positive 02/06/24 Antibody Screen Negative 02/06/24 Hct 32.2 % (36-47) L 02/07/24 Hgb 10.80 g/dL (11.27-16.99) L 02/07/24 Rho(D) Type Rh positive 02/06/24 Plt Count 239 10^3/cmm (157-399) 02/07/24 TSH 2.38 uIU/mL (0.27-4.20) 07/07/23 FSH 7.5 mIU/mL 07/07/23 HCG, Qual Negative (Negative) 07/09/23 Pap Smear Interpret See note 05/23/23 Prolactin 19.16 ng/mL (4.8-23.3) 07/07/23 Discharge Plan Discharge Patient Disposition: Home Condition: Stable Prescriptions: New hydrocodone-acetaminophen 5-325 mg tablet 1 tab PO Q4H PRN (Reason: pain) Qty: 30 0RF acetaminophen 325 mg capsule 325 mg PO Q4H PRN (Reason: fever or pain) Qty: 60 0RF docusate sodium [Colace] 100 mg capsule 100 mg PO BID Qty: 60 0RF ferrous sulfate [Iron (ferrous sulfate)] 325 mg (65 mg iron) tablet 325 mg PO BID Qty: 60 0RF ibuprofen 800 mg tablet 800 mg PO TID PRN (Reason: pain) Qty: 60 0RF Continued azathioprine 50 mg tablet 50 mg PO DAILY spironolactone 100 mg tablet 100 mg PO DAILY Humira 40 mg/0.8 mL syringe kit 40 mg SUBCUT .Q2WKS Rx Instructions: inject one - 40 mg/0.8 mL syringe every 2 weeks SUBCUT bupropion HCl [Wellbutrin XL] 300 mg tablet extended release 24 hr 300 mg PO QAM Qty: 30 2RF gabapentin 400 mg capsule 400 mg PO TID Qty: 90 2RF sertraline [Zoloft] 100 mg tablet 200 mg PO DAILY Qty: 60 2RF Discharge Orders: Discharge Order (Routine); Ordered 02/07/24 Ordered By: Baudilio Hopkins Referrals: Baudilio Hopkins MD [Physician] - 2 weeks Discharge Diet: Usual diet Discharge Activity: Limit activity as instructed Patient Instructions: Hysterectomy (GEN), Vaginal Hysterectomy (GEN), Opioid Safety Activity Restrictions/Additional Instructions: 1. Please call [facility] on next working day to make your post-operative appointment in 2 weeks. 2. Please stay home until you come back to the clinic on first post- hospatilization check up. 3. Please follow instructions on your medications CAREFULLY. 4. If you have abdominal incision, do not cover it unless dressing is necessary because of drainage. OK to shower, but avoid bath. Leave steri-strips until they fall off. If they are still on one week after surgery, you may remove them. 5. If you had vaginal surgery or vaginal repair, Dr. Hopkins may instruct you to take SITZ bath. 6. Yellow, blood tinged odorous vaginal discharge is usually normal after hysterectomy or vaginal surgeries. 7. No SEXUAL INTERCOURSE, tampons, or douches until you are completely released from the post-operative care. 8. Avoid constipation by eating right and maybe using some Metamucil or Milk of Magnesia. 9. All prescription refills are given during the working hours. Please do no wait till it runs out. Call the clinic at [phone] before your medication runs out. The clinic will get in touch with your doctor to prescribe medications if necessary. 10. Please remain within 40 mile radius from our hospital because emergencies do happen now and then during the post-operative period. 11. If you have stairs at home, take one step at a time slowly and minimize the number of trips. It helps to stay in one floor for the next few days. No lifting except what you can lift by one hand until you are released from the post-operative care. 12. Driving is discouraged until you are well healed. It may be 3-4 weeks before you feel strong enough to drive. You should be able to turn and look through the rear window without pain and you should be able to push the brake pedal very hard without pain before you drive. No fast rules, but SAFETY should be your primary concern. DO NOT drive if you are on sedating medications such as narcotics. 13. Call the clinic (during working hours) to make urgent appointment or go to the Emergency room, if any of the following occurs: i. Vaginal bleeding becomes heavy, more than a period. ii. Incision becomes red and sore, or drains pus. iii. Your TEMPERATURE is over 100.4F or you have chill. iv. IV site becomes red and swollen (a little ``knot?? is usually OK) v. Persistent nausea and vomiting vi. Persistent constipation or diarrhea vii. Rash or allergic reaction to medications. Discharge Attestations [employer] Time Spent in Discharge Care*: greater than 30 min Coding Level of Care Code Acute Code for Chg Fwd
[2024-02-07 12:37] VITALS: BP 92/53; PULSE 50; RESP 16; TEMP 36.6; O2SAT 99
== END 2024-02-07 12:30 | disposition home or self-care (01) ==
LOC: OBGYN 09:09
PROVIDERS: Admitting Provider Obstetrics & Gynecology; PCP Nurse Practitioner Family; Visit Provider Obstetrics & Gynecology
PROC: (CPT 58260; principal; 2024-02-06 07:00)
DX: N94.10 Unspecified dyspareunia (principal); Q51.3 Bicornate uterus
CPT/HCPCS: 58260; 36415; 80053; 81001; 81025; 85025; 85027; 86850; 86900; 88307; 96374; 96376; G0378; J0694; J1100; J1200; J1885; J2175; J2250; J2405; J2704; J2710; J3010; J3370; J3490; J7030; J7040; J7121